=== PATIENT | male | born 1940 | race Caucasian/White ===

== ENCOUNTER 2017-10-22 17:47 | Inpatient (IN) | payer MEDICARE, BC, OTHER ==
[~2017-10-22] VITALS: Ht 185.4 cm; Wt 81.8 kg
[~2017-10-22 17:47] MED LIST: HALOBETASOL PO; LAVITRA; LAVITRA PO; LINZESS PO; LISINOPRIL20 MG PO; LORTAB 10-5001 EACH PO; LYRICA PO; LYRICA25 MG PO; PAIN PUMP; TRAMADOL PO; Z NIFEDIPINE PO; Z.0.ATENOLOL100 MG PO; Z.0.CARDURA8 MG PO; Z.0.CELEBREX200 MG PO; Z.0.CLONIDINE HCL0.2 PO; Z.0.FUROSEMIDE40 MG PO; Z.0.LORAZEPAM0.5 MG PO; Z.0.LYRICA150 MG PO; Z.0.PRAVASTATIN SOD2 PO; Z.0.ZOLPIDEM TART12. PO; Z.1.DOXAZOSIN MESYLA PO; ZOLPIDEM TART12.5 MG PO; [UNRECOGNIZED DRUG - OTHER] PO; embril IM
[2017-10-22 19:15] LABS: BASOPHILS # (AUTO) 0.1 (0.0-0.1); BASOPHILS % 0.7 % (0.0-1.0); EOSINOPHILS # (AUTO) 0.1 (0.0-0.4); LYMPHOCYTES # (AUTO) 0.8 (1.0-3.2); LYMPHOCYTES % 9.8 % (18.0-39.1); MEAN CORPUSCULAR HEMOGLOBIN 29.5 pg (28-32); MEAN CORPUSCULAR HGB CONC 32.3 g/dL (31-35); MEAN CORPUSCULAR VOLUME 91.4 fL (81-99); MONOCYTES # (AUTO) 0.7 (0.2-0.8); MONOCYTES % 8.7 % (4.4-11.3); NEUTROPHILS # (AUTO) 6.4 (2.1-6.9); NEUTROPHILS % 79.2 % (38.7-80.0); PLATELET COUNT 244 x10e3/uL (140-360); RED BLOOD COUNT 3.39 x10e6/uL (4.3-5.7); RED CELL DISTRIBUTION WIDTH 14.7 % (11.7-14.4)
[2017-10-22 19:34] LABS: ALANINE AMINOTRANSFERASE 17 IU/L (0-55); ALBUMIN 2.5 g/dL (3.5-5.0); ALBUMIN/GLOBULIN RATIO 0.8 (0.8-2.0); ALKALINE PHOSPHATASE 61 IU/L (40-150); ANION GAP 15.8 mmol/L (8-16); BLOOD UREA NITROGEN 25 mg/dL (7-26); BUN/CREATININE RATIO 22 (6-25); CALCIUM 8.6 mg/dL (8.4-10.2); CARBON DIOXIDE 22 mmol/L (22-29); CHLORIDE 111 mmol/L (98-107); CREATINE KINASE 115 IU/L (30-200); CREATININE, SERUM 1.12 mg/dL (0.72-1.25); EST GLOMERULAR FILTRATION RATE > 60 ML/MIN (60-); GLUCOSE 144 mg/dL (74-118); POTASSIUM 3.8 mmol/L (3.5-5.1); SODIUM 145 mmol/L (136-145)
--- NOTE | 2017-10-22 20:00 | Diagnostic Imaging Report ---
EXAMINATION: Head CT HISTORY: Increased weakness, difficulty walking COMPARISON: Brain MRI 02/16/2016 TECHNIQUE: Multidetector axial images were obtained without contrast from the foramen magnum to the vertex . The images were reconstructed using brain and bone algorithms. Thin section brain images were reformatted into coronal and sagittal planes. Motion/streaking artifact limits the evaluation of the skull base and posterior cranial fossa. FINDINGS: Parenchyma: 1. Mildly confluent periventricular white matter hypodensities, most likely nonspecific chronic microvascular ischemic changes. 2. Questionable hypodensity in the central medulla may represent artifact versus age indeterminate ischemic insult. This was not seen on prior MRI dated 02/16/2016. 3. No mass or hemorrhage. No CT evidence of acute territorial vascular insult. Extra-axial spaces:No abnormal density. No extra-axial fluid collections Brain volume: Mild generalized supra and infratentorial volume loss. Ventricles: No hydrocephalus or displacement. Arteries: Prominent calcified atherosclerotic changes of the carotid and vertebral arteries. Dural sinuses: No abnormal density. Extra-axial spaces: No abnormal density. Foramen magnum: No mass, Chiari malformation, or basilar invagination. Sella: No obvious mass. Paranasal/mastoid sinuses: Imaged portions unremarkable. Skull/Scalp: No lytic or blastic lesions. No fractures. IMPRESSION: 1. No acute intracranial hemorrhage or cortical infarcts. 2. Mild chronic microvascular ischemic changes as detailed above. Signed by: Dr. Bety Burns M.D. on 10/22/2017 7:56 PM
--- NOTE | 2017-10-22 20:01 | Diagnostic Imaging Report ---
Portable chest x-ray INDICATION: Weakness, difficulty walking COMPARISON: Chest x-ray 03/17/2013 FINDINGS: Frontal view of the chest obtained at 1936 hours. The cardiac silhouette is mildly enlarged. There is mild aortic ectasia. Spinal stimulator has been removed. The pulmonary vascular markings are normal. The lungs demonstrate no mass or infiltrate. Central lucency of the lungs suggestive of COPD. The costophrenic angles are sharp. There is no pneumothorax. The osseous structures are intact and normal in morphology. IMPRESSION: 1. Mild cardiomegaly without vascular congestion. 2. Pulmonary hyperinflation suggestive of COPD. No acute pulmonary process. Signed by: Dr. Nalini Thompson MD on 10/22/2017 7:58 PM
[2017-10-22 20:49] LABS: BILIRUBIN,URINE NEGATIVE (NEGATIVE); CLARITY,URINE CLEAR (CLEAR); COLOR,URINE YELLOW (YELLOW); KETONES,URINE TRACE (NEGATIVE); LEUKOCYTE ESTERASE ,URINE NEGATIVE (NEGATIVE); NITRITE,URINE NEGATIVE (NEGATIVE); PROTEIN,URINE DIPSTICK 1+ (NEGATIVE); URINE UROBILINOGEN 1 mg/dL (0.2 - 1)
[2017-10-22 20:59] LABS: BACTERIA,URINE RARE /HPF; EPITHELIAL CELLS,URINE FEW /LPF; RBC,URINE 0-5 /HPF (0-5)
[2017-10-22 21:00] LABS: MUCUS,URINE MANY (RARE)
[2017-10-22] MEDS ORDERED: ONDANSETRON HCL 4 MG ORAL DISINTEGRATING TAB PO PRN (21:45)
[2017-10-22] MEDS ORDERED: SODIUM CHLORIDE 0.9% 1000ML 1,000 ML IV ONE (21:45)
[2017-10-22] MEDS: CEFTRIAXONE SOD 1 GM VIAL IV SCH (21:46)
[2017-10-22] MEDS ORDERED: CEFTRIAXONE SOD 1 GM VIAL ONE (21:50)
--- OUTSIDE RECORDS SUMMARY | 2017-10-22 21:54 | XMS REPORT ---
Author Author [facility] Address Unknown Phone Unavailable Care Team Providers Care Router Operator Radial Name Role Phone EMILY RAMIREZ Unavailable Unavailable Problems This patient has no known problems. Allergies, Adverse Reactions, Alerts This patient has no known allergies or adverse reactions. Medications This patient has no known medications. Results Test Description Test Time Test Comments Text Results Atomic Results Result Comments CT BRAIN WO [place] [address] Patient Name: ABDIAZIZ MORIN MR #: [id number] : 1940 Age/Sex: 76/M Req #: [id number] Adm Physician: Ordered by: MANUEL ALONZO ANIMAL PHYSIOLOGIST Report #: [id number] Location: ER Room/Bed: Procedure: [id number] CT/CT BRAIN WO Exam Date: 10/22/17 Exam Time: 1940 REPORT STATUS: Signed EXAMINATION: Head CT HISTORY: Increased weakness, difficulty walking COMPARISON: Brain MRI 2015 TECHNIQUE: Multidetector axial images were obtained without contrast from the foramen magnum to the vertex . The images were reconstructed using brain and bone algorithms. Thin section brain images were reformatted into coronal and sagittal planes. Motion/streaking artifact limits the evaluation of the skull base and posterior cranial fossa. FINDINGS: Parenchyma: 1. Mildly confluent periventricular white matter hypodensities, most likely nonspecific chronic microvascular ischemic changes. 2. Questionable hypodensity in the central medulla may represent artifact versus age indeterminate ischemic insult. This was not seen on prior MRI dated 02/16/2016. 3. No mass or hemorrhage. No CT evidence of acute territorial vascular insult. Extra-axial spaces:No abnormal density. No extra-axial fluid collections Brain volume: Mild generalized supra and infratentorial volume loss. Ventricles: No hydrocephalus or displacement. Arteries: Prominent calcified atherosclerotic changes of the carotid and vertebral arteries. Dural sinuses: No abnormal density. Extra-axial spaces: No abnormal density. Foramen magnum: No mass, Chiari malformation, or basilar invagination. Sella: No obvious mass. Paranasal/mastoid sinuses: Imaged portions unremarkable. Skull/Scalp: No lytic or blastic lesions. No fractures. IMPRESSION: 1. No acute intracranial hemorrhage or cortical infarcts. 2. Mild chronic microvascular ischemic changes as detailed above. Signed by: Dr. Mounika Burns M.D. on 10/22/2017 7:56 PM Dictated By: MOUNIKA BURNS MD 55 COPY TO: MANUEL ALONZO NP CHEST SINGLE (PORTABLE) [place] [address] Patient Name: ABDIAZIZ MORIN MR #: [id number] : 1940 Age/Sex: 76/M Req #: [id number] Adm Physician: Ordered by: MANUEL ALONZO NP Report #: [id number] Location: ER Room/Bed: ___ Procedure: [id number] DX/CHEST SINGLE (PORTABLE) Exam Date: 10/22/17 Exam Time: 1935 REPORT STATUS: Signed Portable chest x-ray INDICATION: Weakness, difficulty walking COMPARISON: Chest x-ray 03/17/2013 FINDINGS: Frontal view of the chest obtained at 1936 hours. The cardiac silhouette is mildly enlarged. There is mild aortic ectasia. Spinal stimulator has been removed. The pulmonary vascular markings are normal. The lungs demonstrate no mass or infiltrate. Central lucency of the lungs suggestive of COPD. The costophrenic angles are sharp. There is no pneumothorax. The osseous structures are intact and normal in morphology. IMPRESSION: 1. Mild cardiomegaly without vascular congestion. 2. Pulmonary hyperinflation suggestive of COPD. No acute pulmonary process. Signed by: Dr. Nalini Thompson MD on 10/22/2017 7:58 PM Dictated By: NALINI THOMPSON MD 57 Transcribed By: DAVID on 10/22/171957 COPY TO: MANUEL ALONZO NP
[2017-10-22] MEDS ORDERED: REMERON15 MG (23:07)
[2017-10-22] MEDS ORDERED: ACETAMINOPHEN325 M1 PO (23:07)
[2017-10-22 23:09] VITALS: BP 173/86
[2017-10-22 23:33] VITALS: BP 173/86
[2017-10-23 06:22] LABS: BASOPHILS # (AUTO) 0.1 (0.0-0.1); BASOPHILS % 0.8 % (0.0-1.0); EOSINOPHILS # (AUTO) 0.1 (0.0-0.4); EOSINOPHILS % 2.1 % (0.0-6.0); HEMATOCRIT 26.3 % (38.2-49.6); HEMOGLOBIN 8.6 g/dL (14.0-18.0); LYMPHOCYTES % 16.5 % (18.0-39.1); MEAN CORPUSCULAR HEMOGLOBIN 30.2 pg (28-32); MEAN CORPUSCULAR HGB CONC 32.7 g/dL (31-35); MEAN CORPUSCULAR VOLUME 92.3 fL (81-99); MONOCYTES # (AUTO) 0.6 (0.2-0.8); MONOCYTES % 9.5 % (4.4-11.3); NEUTROPHILS # (AUTO) 4.4 (2.1-6.9); NEUTROPHILS % 70.6 % (38.7-80.0); PLATELET COUNT 203 x10e3/uL (140-360); RED BLOOD COUNT 2.85 x10e6/uL (4.3-5.7); RED CELL DISTRIBUTION WIDTH 14.6 % (11.7-14.4)
[2017-10-23 06:45] LABS: ALANINE AMINOTRANSFERASE 12 IU/L (0-55); ALBUMIN 2.1 g/dL (3.5-5.0); ALBUMIN/GLOBULIN RATIO 0.8 (0.8-2.0); ALKALINE PHOSPHATASE 45 IU/L (40-150); ANION GAP 11.3 mmol/L (8-16); BLOOD UREA NITROGEN 22 mg/dL (7-26); BUN/CREATININE RATIO 23 (6-25); CALCIUM 8.2 mg/dL (8.4-10.2); CARBON DIOXIDE 23 mmol/L (22-29); CHLORIDE 111 mmol/L (98-107); CREATININE, SERUM 0.95 mg/dL (0.72-1.25); EST GLOMERULAR FILTRATION RATE > 60 ML/MIN (60-); GLUCOSE 91 mg/dL (74-118); POTASSIUM 3.3 mmol/L (3.5-5.1); SODIUM 142 mmol/L (136-145)
[2017-10-23 08:00] VITALS: BP 144/70
[2017-10-23] MEDS ORDERED: DEPAKOTE250 MG PO (11:52)
[2017-10-23 12:00] VITALS: BP 138/75
[2017-10-23 15:06] LABS: CREATINE KINASE MB 0.8 ng/mL (0-5.0)
[2017-10-23 16:00] VITALS: BP 159/73
[2017-10-23] MEDS ORDERED: PREGABALIN 225 MG PO SCH (17:00)
[2017-10-23] MEDS: DRONABINOL 2.5MG PO SCH (17:19)
[2017-10-23] MEDS: PREGABALIN 75 MG CAP PO SCH (17:19)
[2017-10-23] MEDS: ACETAMINOPHEN 325 MG TAB PO SCH (17:19)
[2017-10-23 20:00] VITALS: BP 188/79
[2017-10-23] MEDS ORDERED: CLONIDINE HCL 0.1 MG TAB PO SCH (21:00)
[2017-10-23] MEDS ORDERED: CLONIDINE HCL 0.2 MG TAB PO SCH (21:00)
[2017-10-23] MEDS ORDERED: LORAZEPAM 0.5 MG TAB PO PRN (21:00)
[2017-10-23] MEDS ORDERED: LORAZEPAM 0.5 MG TAB PO SCH (21:00)
[2017-10-23] MEDS: DIVALPROEX SODIUM 250 MG TAB...DR PO SCH (22:26)
[2017-10-23] MEDS: CEFTRIAXONE SOD 1 GM VIAL IV SCH (22:26)
[2017-10-24] VITALS (7 sets, daily range): BP systolic 123–187; BP diastolic 65–98
[2017-10-24] MEDS: ACETAMINOPHEN 325 MG TAB PO SCH ×4 (00:22→16:21)
[2017-10-24] MEDS ORDERED: CLONIDINE HCL 0.1 MG TAB PO ONE (05:45)
[2017-10-24 06:38] LABS: BASOPHILS % 0.6 % (0.0-1.0); EOSINOPHILS # (AUTO) 0.1 (0.0-0.4); EOSINOPHILS % 2.3 % (0.0-6.0); HEMATOCRIT 28.6 % (38.2-49.6); HEMOGLOBIN 9.3 g/dL (14.0-18.0); LYMPHOCYTES # (AUTO) 1.1 (1.0-3.2); LYMPHOCYTES % 17.4 % (18.0-39.1); MEAN CORPUSCULAR HEMOGLOBIN 29.9 pg (28-32); MEAN CORPUSCULAR HGB CONC 32.5 g/dL (31-35); MONOCYTES # (AUTO) 0.7 (0.2-0.8); MONOCYTES % 11.6 % (4.4-11.3); NEUTROPHILS # (AUTO) 4.2 (2.1-6.9); NEUTROPHILS % 67.6 % (38.7-80.0); PLATELET COUNT 210 x10e3/uL (140-360); RED BLOOD COUNT 3.11 x10e6/uL (4.3-5.7); RED CELL DISTRIBUTION WIDTH 14.6 % (11.7-14.4)
[2017-10-24 07:05] LABS: ANION GAP 11.7 mmol/L (8-16); BLOOD UREA NITROGEN 22 mg/dL (7-26); BUN/CREATININE RATIO 23 (6-25); CALCIUM 8.4 mg/dL (8.4-10.2); CARBON DIOXIDE 25 mmol/L (22-29); CHLORIDE 113 mmol/L (98-107); CREATININE, SERUM 0.97 mg/dL (0.72-1.25); EST GLOMERULAR FILTRATION RATE > 60 ML/MIN (60-); GLUCOSE 92 mg/dL (74-118); POTASSIUM 3.7 mmol/L (3.5-5.1); SODIUM 146 mmol/L (136-145)
[2017-10-24] MEDS: DRONABINOL 2.5MG PO SCH ×2 (08:42→17:12)
[2017-10-24] MEDS: CLONIDINE HCL 0.2 MG TAB PO SCH ×3 (08:42→20:49)
[2017-10-24] MEDS: LISINOPRIL 20 MG TAB PO SCH (08:43)
[2017-10-24] MEDS: DIVALPROEX SODIUM 250 MG TAB...DR PO SCH (08:43)
[2017-10-24] MEDS: PREGABALIN 75 MG CAP PO SCH ×2 (08:43→16:21)
[2017-10-24] MEDS: NIFEDIPINE CR 30 MG TAB PO SCH (08:44)
[2017-10-24] MEDS: COLLAGENASE 5 GM TUBE TP SCH (08:45)
[2017-10-24] MEDS: BALSAM PERU/CASTOR OIL 60 GM OINT...G. TP SCH ×2 (08:45→15:58)
[2017-10-24] MEDS ORDERED: COLLAGENASE OINTMENT 30 GM TUBE TP SCH (09:00)
--- NOTE | 2017-10-24 14:15 | Consultation ---
DATE OF CONSULTATION: October 23, 2017 NEUROLOGY CONSULT NOTE HISTORY OF PRESENT ILLNESS: Mr. Ayala is a 76-year-old right-hand dominant man with past medical history significant for hypertension, aortic stenosis, atrial fibrillation, prostate cancer, and dementia, probably of the Alzheimer's type admitted to [facility] on October 22, 2017 with a 2-week history of progressively worsening confusion. Unfortunately, the patient is unable to provide any history. The history is obtained from his , Nadiya Ayala, over the telephone. Approximately, 2 weeks ago, the patient had a "bout of diarrhea", which lasted for approximately 4 to 5 days. For the past 2 weeks, Mr. Ayala has not tolerated food or beverages by mouth. Over the past 2 weeks, his has noted worsening confusion and generalized weakness. Mr. Ayala resides in a memory care facility. When his came to visit him on October 22, 2017, she found the patient lying in bed, unresponsive with his arms bent and locked over his chest. The patient's legs were extended. There was no gaze or head version. However, Mrs. Ayala reports the patient's eyes had a glazed appearance. There was no tongue biting or foaming saliva. There was possible bladder or bowel incontinence. After finding her in the above-described state, the patient's went to speak with his nurse. The nurse immediately called 911 and then, proceeded to the patient's room to evaluate him. By the time Mrs. Ayala and the patient's nurse returned to the room, the patient's eyes were open and he was moving his arms and legs. However, the patient was very confused. The paramedics arrived on the scene shortly after being called, and transported the patient to [facility] for further evaluation and treatment of his symptoms. Mrs. Ayala does not report a prior history of seizures. She reports the patient is taking valproic acid 250 mg by mouth 3 times daily for mood stabilization as prescribed by his psychiatrist. Upon admission to the hospital, Mr. Ayala was found to be dehydrated and to have urinary tract infection. Other significant findings on his diagnostic studies include a subtherapeutic valproic acid level of 36. Mr. Ayala was diagnosed with dementia, probably of the Alzheimer's type, approximately 1-1/2 to 2 years ago. He was seeing Dr. Chaidez for treatment. Initially, he was treated with Aricept and Namenda. This was, subsequently, exchanged for Namzaric. The patient's reports the patient had a better response to Aricept and Namenda separately rather than a combination of the medications in Namzaric. Mrs. Ayala does report verbal and physical aggression from her . She endorses visual hallucinations as well. REVIEW OF SYSTEMS: Unable to obtain secondary to the patient being encephalopathic. PAST MEDICAL HISTORY: Hypertension, aortic stenosis, atrial fibrillation, chronic low back pain, prostate cancer (in remission), dementia, probably of the Alzheimer's tight, and possible peripheral neuropathy. PAST SURGICAL HISTORY: Multiple lumbar spine surgeries. PAST HOSPITALIZATIONS: Surgeries/procedures listed. Multiple hospitalizations for encephalopathy. FAMILY HISTORY: The only significant family history endorsed by the patient's is diabetes mellitus in the patient's mother. SOCIAL HISTORY: Mr. Ayala is . He is a college graduate. 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 There is no reported current use of tobacco, alcohol or recreational drugs. HOME MEDICATIONS 1. Acetaminophen 650 mg by mouth every 6 hours as needed for pain. 2. Clonidine 0.1 mg by mouth 3 times daily. 3. Depakote 250 mg by mouth 3 times daily. 4. Lisinopril 20 mg by mouth daily. 5. Lorazepam 0.5 mg by mouth 3 times daily. 6. Mirtazapine 15 mg by mouth daily. 7. Nifedipine 90 mg by mouth daily. 8. Lyrica 225 mg by mouth twice daily. ALLERGIES: NO KNOWN DRUG ALLERGIES. NO KNOWN FOOD ALLERGIES. NO KNOWN ALLERGY TO LATEX. NO KNOWN ALLERGIES TO IODINE OR OTHER CONTRAST MATERIAL. PHYSICAL EXAMINATION VITAL SIGNS: Height 73 inches. Weight 184 lbs. BMI 24.3 kg per meter squared. Blood pressure 159/73 mmHg. Pulse 63 beats per minute. Respiratory rate 18 breaths per minute. Oxygen saturation 97% on room air. GENERAL: Patient is awake and alert, in no acute distress. HEENT: Normocephalic, atraumatic. Pupils are equal, round and reactive to light. Moist mucous membranes. NECK: Supple. No appreciable thyromegaly. No appreciable carotid bruits. CARDIOVASCULAR: S1, S2. Regular rate and rhythm. Positive systolic ejection murmur. RESPIRATORY: Clear to auscultation bilaterally. No wheezes, rhonchi or rales. EXTREMITIES: The skin is warm and dry. No clubbing or cyanosis. There is trace pretibial pitting edema. The posterior tibial and dorsalis pedis pulses are 1+ and symmetric. NEUROLOGIC MEMORY/ATTENTION: The patient is awake and alert. Oriented to person and place (hospital, State). Not oriented to time or situation. CRANIAL NERVES: Cranial nerve I--not tested. Cranial nerves II-III IV, --pupils are equal and round, react briskly to light (from 4 mm to 2 mm), extraocular movements intact. No nystagmus. Cranial nerve V--sensation to light touch is grossly intact in the bilateral V1 through V3 distributions. Strength of the temporalis and masseter muscles is within normal limits. Cranial nerve VII--the face is symmetric as are all facial movements. Strength is within normal limits. Cranial nerve VII--hearing is diminished to finger rub bilaterally. Cranial nerves IX, X--the soft palate elevates equally and symmetrically. Cranial nerve XI--normal strength of the bilateral sternocleidomastoid and trapezius muscles. Cranial nerve XII--the tongue protrudes midline and moves symmetrically from side to side. STRENGTH: Bulk is normal. The patient maintains both arms against gravity for more than 10 seconds each without drift. The patient maintains both legs against gravity for more than 5 seconds each without drift. Strength is 5/5 in all muscles examined in both arms and both legs. Tone is normal. DTRs: Deep tendon reflexes are 1+ and symmetric at the triceps, biceps, brachioradialis, and patellas. Deep tendon reflexes are absent and symmetric at the Achilles. Plantar responses are flexor bilaterally. SENSATION: Sensation to light touch is grossly intact over both arms and both legs. CEREBELLAR: Unable to assess as the patient is encephalopathic and unable to follow instructions. GAIT: Gait deferred. SPEECH: Spontaneous speech is hypophonic. There is no appreciable dysarthria or aphasia. Appreciated repetition is intact. INVOLUNTARY MOVEMENTS: None. PRONATOR DRIFT: As per motor exam. LABORATORY DATA: Sodium 142, potassium 3.3, chloride 111, carbon dioxide 23, anion gap 11.3, BUN 22, creatinine 0.95, estimated GFR greater than 60. BUN to creatinine ratio 23, glucose 91, calcium 8.2, total bilirubin 0.5, AST 14, ALT 12, alkaline phosphatase 45, total protein 4.7, albumin 2.1, globulin 2.6, albumin to globulin ratio 0.82. CK 115, 60, 54. CK-MB 1.601, 1.00, 0.80. Troponin-I 0.004, 0.011, 0.001. The CBC with differential and platelets reveals a white blood cell count of 6.20 with 70.6% neutrophils, 16.5% lymphocytes, 9.5% monocytes, 2.1% eosinophils, and 0.8% basophils. The hemoglobin/hematocrit are 8.6 and 26.3, respectively. The platelet count is 203,000. Urinalysis reveals 1+ protein, trace ketones, 6 to 10 white blood cells, 2 to 5 hyaline casts, and many urine mucus. Valproic acid level 36. DIAGNOSTIC STUDIES 1. Chest x-ray on October 22, 2017: Mild cardiomegaly without vascular congestion. Pulmonary hyperinflation suggestive of COPD. No acute pulmonary process. 2. CT of the brain without contrast on October 22, 2017: On my review, there is no evidence of recent large territorial ischemia hemorrhage, mass or mass effect. There is diffuse cerebral atrophy, more than is expected to the patient's age. There are findings compatible with mild chronic small vessel ischemic disease. ASSESSMENT AND PLAN: Mr. Ayala is a 76-year-old right-hand dominant man with past medical history significant for dementia, probably of the Alzheimer's type, hypertension, aortic stenosis, atrial fibrillation, and prostate cancer, currently in remission, admitted to [facility] on October 22, 2017 with a 2-week history of worsening confusion. Upon admission, the patient was found to be dehydrated and to have a urinary tract infection. The findings on Mr. Ayala's neurological examination are detailed above. His laboratory data and other diagnostic studies have been reviewed and are detailed above. Mr. Ayala has a metabolic encephalopathy, which is multifactorial in origin. Contributing factors include underlying dementia, dehydration, and urinary tract infection. As the patient is outside of his normal environment and not participating in his normal routine, there is probably a component of delirium contributing to his encephalopathy as well. The patient's reports no known history of seizure disorder. However, the event she witnessed yesterday prior to the patient's transfer to [facility] is suspicious for a seizure. Mr. Ayala was found to have a subtherapeutic valproic acid level upon admission. Medications nonadherence is a known trigger for seizures. In addition, the patient has a urinary tract infection. Infection is a known trigger for seizures as well. RECOMMENDATIONS 1. Routine electroencephalogram. 2. Continue treatment with Depakote 250 mg by mouth 3 times daily. 3. A repeat valproic acid level will be drawn on October 24, 2017. 4. As part of a dementia evaluation, blood work will be ordered. Those tests include: A thyroid function panel, vitamin B12 level, and RPR. 5. Continue with intravenous fluids for treatment of dehydration. 6. Continue with antibiotics for treatment of urinary tract infection. 7. Limit the use of sedative/hypnotic and pain medications as these medicines will alter the patient's sensorium. To this end, Ativan will be changed from scheduled to as needed. 8. To combat delirium, utilize environmental cues. Have light and television turned on during the day. The lights and television should be turned off when the patient should be sleeping. The date, day of the week, month, and year should be written on the dry erase board in the patient's room daily. Any expected consultations or procedures should be written on the dry erase board as well. 9. Consider resuming treatment with Aricept and Namenda prior to discharge. 10. Defer treatment of the remaining medical comorbidities to the primary and other services. Thank you for this consultation. I will continue to follow this patient while he remains in hospital. Time spent 70 minutes. Job#: [id number] EMMANUEL
[2017-10-24] MEDS ORDERED: RISPERIDONE 0.5 MG TAB PO PRN (16:00)
[2017-10-24] MEDS ORDERED: HALOPERIDOL LACTATE 5 MG/ML VIAL IM PRN (16:00)
[2017-10-24] MEDS ORDERED: VALPROATE SOD INJ 1,000 MG in SODIUM CHLORIDE 0.9% 100 ML 100 ML IV SCH ×2 (16:15→16:30)
[2017-10-24] MEDS ORDERED: SODIUM CHLORIDE 0.9% 250ML 250 ML ONE (17:16)
[2017-10-24] MEDS: VALPROATE 250MG/5ML ORAL LIQ 5ml PO SCH (20:50)
[2017-10-24] MEDS: CEFTRIAXONE SOD 1 GM VIAL IV SCH (20:50)
[2017-10-25] VITALS (7 sets, daily range): BP systolic 95–189; BP diastolic 62–86
[2017-10-25] MEDS: ACETAMINOPHEN 325 MG TAB PO SCH ×4 (01:35→17:09)
[2017-10-25] MEDS: DRONABINOL 2.5MG PO SCH ×2 (07:30→17:09)
[2017-10-25] MEDS: CLONIDINE HCL 0.2 MG TAB PO SCH ×2 (08:32→15:00)
[2017-10-25] MEDS: VALPROATE 250MG/5ML ORAL LIQ 5ml PO SCH ×2 (08:33→15:52)
[2017-10-25] MEDS: PREGABALIN 75 MG CAP PO SCH ×2 (08:33→17:09)
[2017-10-25] MEDS: LISINOPRIL 20 MG TAB PO SCH (08:33)
[2017-10-25] MEDS: NIFEDIPINE CR 30 MG TAB PO SCH (08:34)
[2017-10-25] MEDS: BALSAM PERU/CASTOR OIL 60 GM OINT...G. TP SCH ×2 (09:00→17:09)
[2017-10-25] MEDS: COLLAGENASE 5 GM TUBE TP SCH (09:00)
--- NOTE | 2017-10-25 10:00 | Consultation ---
DATE OF CONSULTATION: October 24, 2017 The patient was evaluated and events noted. REASON FOR CONSULTATION: To evaluate the patient's dementia. HISTORY OF PRESENTING ILLNESS: The patient is a 76-year-old man admitted to the hospital for decreased ADLs and dehydration. Psychiatric consultation was requested to evaluate the patient for dementia and psychosis. As per medical records, the patient came from nursing facility. He has medical history of hypertension, aortic stenosis, atrial fibrillation, prostate cancer, dementia. He was found to have worsening confusion and altered mental status and was taken to the hospital for further evaluation. Upon evaluation today, the patient is found to be in the room. He was alert, awake. He is calm but confused. He is oriented to self only. He does not know where he is. He does not know the current year. He appears to be suspicious and paranoid, and believes that the police is out to lock him up. He states that this makes him anxious. He denies any depression. He denies any sleep issues. He denies any suicidal ideation. He is slow to answer questions. At times, appears to not understand the questions posed to him completely. The rest of the information is taken with the help of the patient's [id number] who was in the room at the time. I spoke to the patient's [id number]-cou who reports that the patient was staying at a intermediate facility. He has had history of dementia for about 2 years, which worsened for the last 6 months. She finds him to more confused, less active, unable to do his ADLs. 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 He is not aware of his surroundings. He believes he works at many places. During his stay at the intermediate facility, he was not eating there. He did not have any appetite issues. There is a report that the patient was having some hallucinations at the facility, and he received something which helped, but the [id number] does not know the name of this particular medication. As per the nursing staff, the patient has been agitated, has been fighting staff today. PAST PSYCHIATRIC HISTORY: The patient has history of dementia for the last 2 years. He has never attempted suicide in the past, as per family member. He did not drink or use any drugs. FAMILY HISTORY: Denied. SOCIAL HISTORY: The patient is living at [facility]. MENTAL STATUS EXAM: The patient is an elderly male. He is alert, awake and oriented to self only. He is very confused. Mood is anxious with flat affect. Thought process is loose. Thought content is paranoia elicited today. He denies any suicidal or homicidal ideation. He denies any hallucinations. Insight and judgment are impaired. Memory appears to be grossly impaired. CURRENT MEDICATIONS: 1. Collagenase. 2. Nifedipine. 3. Lisinopril. 4. Depakote 250 mg p.o. 3 times a day. 5. Clonidine. 6. Marinol. 7. Rocephin. 8. Lortab. 9. Tylenol. 10. Ativan 0.5 3 times a day p.r.n. 11. Ondansetron. CURRENT LABS: WBC 6.19, RBCs 3.11, hemoglobin 9.3, hematocrit 28.6, platelets 210,000, sodium 146, potassium 3.7, chloride 113, CO2 of 25, BUN 22, creatinine 0.97. ASSESSMENT: Unspecified psychosis; dementia with behavioral disturbances. PLAN: 1. Continue with Ativan 0.5 mg p.o. 3 times a day p.r.n. 2. Marinol ____ diet per medical. 3. Continue Depakote, adjust the Depakote sprinkles 250 mg p.o. 3 times a day. 4. Risperdal p.r.n. 5. Add Haldol prn IM. 6. Monitor for agitation. Thank you for this consultation. Will continue to follow up with the patient during his hospital stay. Dictated by: JAMAR Estevez Job#: [id number]
--- NOTE | 2017-10-25 16:58 | Progress Note ---
DATE: October 25, 2017 The patient was evaluated and events noted. Patient is lying on the bed. He is awake, alert and oriented to situation. He is calm at this time. Patient received a Haldol dose earlier this morning at 4 a.m. Nursing staff reported that he was restless. Patient is calm, although confused at times, answering questions inappropriately. He is not having any hallucinations. He denies any depression. He denies any suicidal ideation. He is receiving his medications, and no serious side effects are seen. As per nursing staff, the patient has been discharged to go to [facility]. ASSESSMENT: Unspecified psychosis/dementia. PLAN 1. Continue with Ativan p.r.n. p.o. 2. Depakote as per neurology. 3. Continue Risperdal p.r.n. 4. Continue Haldol p.r.n. IM. 5. Monitor for agitation. Dictated by: JAMAR Estevez Job#: [id number]
== END 2017-10-25 19:11 | DRG 689 ==
LOC: ER 17:47 → ERHOLD 21:34 → EDBEDREQ 21:56 → MED/SURG2 22:29
DX: N30.00 Acute cystitis without hematuria (principal); G93.41 Metabolic encephalopathy; F05 Delirium due to known physiological condition; F02.81 Dementia in other diseases classified elsewhere, unspecified severity, with behavioral disturbance; E86.0 Dehydration; G30.0 Alzheimer's disease with early onset; I10 Essential (primary) hypertension; I25.10 Atherosclerotic heart disease of native coronary artery without angina pectoris; I35.0 Nonrheumatic aortic (valve) stenosis; I48.91 Unspecified atrial fibrillation; Z85.46 Personal history of malignant neoplasm of prostate; G89.29 Other chronic pain; R56.9 Unspecified convulsions
CPT/HCPCS: 36415; 70450; 71045; 80048; 80053; 80164; 81001; 82550; 82553; 82607; 82948; 84443; 84484; 85025; 86592; 87040; 87086; 93005; 95812; 97139; 99284; J0696; J1630; J7030; J7050

== ENCOUNTER 2019-06-25 14:14 | Emergency (ER) | payer MEDICARE, BC ==
[~2019-06-25] VITALS: Ht 185.4 cm; Wt 81.6 kg
[~2019-06-25 14:14] MED LIST changes: +ACETAMINOPHEN325 M1 PO; +CLINDAMYCIN HC300 MG PO; +DEPAKOTE250 MG PO; +REMERON15 MG
[2019-06-25] MEDS ORDERED: TRAMADOL HCL 50 MG TAB PO ONE (14:30)
--- NOTE | 2019-06-25 16:08 | Diagnostic Imaging Report ---
EXAMINATION: KNEE THREE VIEWS BILATERAL, LOWER LEG RIGHT INDICATION: Trauma COMPARISON: None FINDINGS: Right lower leg: There is a nondisplaced oblique fracture of the proximal tibial diaphysis. No definite evidence of intra-articular extension to the knee joint. Right knee: No acute fracture or dislocation. Alignment is anatomic. No substantial joint effusion. Soft tissues appear unremarkable. Atherosclerotic arterial calcifications. Left knee: No acute fracture or dislocation. Alignment is anatomic. No substantial joint effusion. Atherosclerotic arterial calcifications. IMPRESSION: Nondisplaced oblique fracture of proximal right tibia without definite intra-articular extension. No acute osseous injury of the knees. Signed by: Jacklyn Dang MD on 06/25/2019 4:05 PM
== END 2019-06-25 16:51 | disposition home or self-care (01) ==
LOC: ER 14:14
DX: S82.234A Nondisplaced oblique fracture of shaft of right tibia, initial encounter for closed fracture (principal); S80.212D Abrasion, left knee, subsequent encounter; S80.211D Abrasion, right knee, subsequent encounter; W01.0XXA Fall on same level from slipping, tripping and stumbling without subsequent striking against object, initial encounter; Y92.008 Other place in unspecified non-institutional (private) residence as the place of occurrence of the external cause; I25.10 Atherosclerotic heart disease of native coronary artery without angina pectoris; I48.91 Unspecified atrial fibrillation; Z86.73 Personal history of transient ischemic attack (TIA), and cerebral infarction without residual deficits; Z85.46 Personal history of malignant neoplasm of prostate
CPT/HCPCS: 99284

== ENCOUNTER 2019-06-29 09:51 | Inpatient (IN) | payer MEDICARE, BC ==
[~2019-06-29] VITALS: Ht 185.4 cm; Wt 80.8 kg
[2019-06-29] MEDS ORDERED: SODIUM CHLORIDE 0.9% 500ML 500 ML IV ONE ×2 (10:15→11:30)
[2019-06-29] MEDS ORDERED: PIPER-TAZ 3.375 GM 50 ML IV ONE (10:30)
[2019-06-29 10:38] LABS: BASOPHILS # (AUTO) 0.1 (0.0-0.1); BASOPHILS % 0.7 % (0.0-1.0); EOSINOPHILS # (AUTO) 0.2 (0.0-0.4); EOSINOPHILS % 1.9 % (0.0-6.0); HEMATOCRIT 32.2 % (38.2-49.6); HEMOGLOBIN 10.8 g/dL (14.0-18.0); LYMPHOCYTES # (AUTO) 1.2 (1.0-3.2); LYMPHOCYTES % 12.7 % (18.0-39.1); MEAN CORPUSCULAR HEMOGLOBIN 30.8 pg (28-32); MEAN CORPUSCULAR HGB CONC 33.5 g/dL (31-35); MEAN CORPUSCULAR VOLUME 91.7 fL (81-99); MONOCYTES # (AUTO) 0.9 (0.2-0.8); MONOCYTES % 9.8 % (4.4-11.3); NEUTROPHILS # (AUTO) 7.2 (2.1-6.9); NEUTROPHILS % 74.5 % (38.7-80.0); PLATELET COUNT 276 x10e3/uL (140-360); RED BLOOD COUNT 3.51 x10e6/uL (4.3-5.7); RED CELL DISTRIBUTION WIDTH 12.6 % (11.7-14.4)
[2019-06-29 10:51] LABS: INR 0.96
[2019-06-29 10:52] LABS: PARTIAL THROMBOPLASTIN TIME 32.4 seconds (23.8-35.5)
[2019-06-29 10:55] LABS: CLARITY,URINE CLEAR (CLEAR); COLOR,URINE YELLOW (YELLOW)
[2019-06-29 10:56] LABS: BACTERIA,URINE RARE /HPF; BILIRUBIN,URINE NEGATIVE (NEGATIVE); EPITHELIAL CELLS,URINE FEW /LPF; KETONES,URINE NEGATIVE (NEGATIVE); LEUKOCYTE ESTERASE ,URINE NEGATIVE (NEGATIVE); NITRITE,URINE NEGATIVE (NEGATIVE); PROTEIN,URINE DIPSTICK NEGATIVE (NEGATIVE); RBC,URINE 0-5 /HPF (0-5); URINE UROBILINOGEN 0.2 mg/dL (0.2 - 1); WBC,URINE (MAN) 0-5 /HPF (0-5)
[2019-06-29] MEDS ORDERED: VANCOMYCIN 1GM/NS 250 ML 250 ML IV ONE (11:00)
--- NOTE | 2019-06-29 11:00 | Diagnostic Imaging Report ---
CT BRAIN WO HISTORY: Fall COMPARISON: Head CT 10/22/2017 Technique: Noncontrast axial scans were obtained from skull base to the vertex. Coronal and sagittal reconstructions obtained from the axial data. One or more of the following dose reduction techniques were used: Automated exposure control, adjustment of the mA and/or kV according to patient size, and/or utilization of iterative reconstruction technique. DISCUSSION: Scalp/Skull: Unremarkable. Brain sulci: Mildly prominent. Ventricles: Compensatory dilatation. Extra-axial spaces: No masses or fluid collections. Carotid and vertebral artery calcifications are present. Parenchyma: Mild bilateral deep white matter hypodensity is likely chronic microvascular ischemic change. Otherwise, no masses, hemorrhage, or large vascular territory acute infarct. Dural sinuses: No abnormal densities. Sellar/Suprasellar region: Intact. Skull base: Intact. Incidental findings: Bilateral ocular lens replacement. IMPRESSION: 1. No acute intracranial abnormalities. 2. Mild supratentorial chronic microvascular ischemic change. Generalized cerebral volume loss. Signed by: Dr. Isauro Olvera M.D. on 06/29/2019 10:58 AM
[2019-06-29 11:01] LABS: ALBUMIN 3.6 g/dL (3.5-5.0); ALBUMIN/GLOBULIN RATIO 0.9 (0.8-2.0); ANION GAP 21.6 mmol/L (8-16); CREATININE, SERUM 2.62 mg/dL (0.72-1.25); MAGNESIUM 2.3 MG/DL (1.3-2.1); POTASSIUM 4.6 mmol/L (3.5-5.1)
[2019-06-29 11:05] LABS: B-TYPE NATRIURETIC PEPTIDE2 90.6 pg/mL (0-100)
--- NOTE | 2019-06-29 11:05 | Diagnostic Imaging Report ---
CT CERVICAL SPINE WO HISTORY: Fall COMPARISON: Concurrent head CT TECHNIQUE: CT of the cervical spine without contrast. Sagittal and coronal reformations were created. One or more of the following dose reduction techniques were used: Automated exposure control, adjustment of the mA and/or kV according to patient size, and/or utilization of iterative reconstruction technique. FINDINGS: Bone demineralization limits evaluation. Cervical lordosis is slightly straightened. There is no scoliosis or subluxation. No definite acute fracture or compression deformity is seen. The craniocervical junction is intact. No gross spinal canal masses are seen. The paravertebral and paraspinal soft tissues are unremarkable. Multilevel advanced spondylotic changes, facet arthrosis, and uncovertebral arthrosis are present. There is at least mild to moderate canal stenosis from C3-C4 to C6-C7 due to posterior disc osteophyte complexes and ligamentum flavum thickening. Mild to moderate bilateral carotid bulb calcified plaque is present. IMPRESSION: 1. No acute osseous abnormalities. 2. Multilevel advanced degenerative changes as described above. Signed by: Dr. Isauro Olvera M.D. on 06/29/2019 11:03 AM
[2019-06-29 11:07] LABS: CREATINE KINASE MB 1.1 ng/mL (0-5.0)
[2019-06-29] MEDS ORDERED: BUMETANIDE2 MG (11:47)
[2019-06-29] MEDS ORDERED: MUPIROCIN22 GM (11:47)
[2019-06-29] MEDS ORDERED: POTASSIUM CHLO20 ME1 (11:47)
[2019-06-29] MEDS ORDERED: ATORVASTATIN CA10 MG (11:47)
[2019-06-29] MEDS ORDERED: ESIDRIX25 MG (11:47)
[2019-06-29] MEDS ORDERED: MEMANTINE HCL10 MG (11:47)
[2019-06-29] MEDS ORDERED: POTASSIUM (11:47)
[2019-06-29] MEDS ORDERED: NIFEDIPINE ER60 M1 (11:47)
[2019-06-29] MEDS ORDERED: SPIRONOLACTONE25 MG (11:47)
[2019-06-29] MEDS ORDERED: ULTRAM 50MG50 MG (11:47)
[2019-06-29] MEDS ORDERED: QUETIAPINE FUMA25 MG (11:47)
[2019-06-29] MEDS ORDERED: BENZTROPINE ME0.5 MG (11:47)
[2019-06-29] MEDS ORDERED: GABAPENTIN100 MG (11:47)
[2019-06-29] MEDS ORDERED: CARVEDILOL12.5 MG (11:47)
[2019-06-29] MEDS ORDERED: DIVALPROEX SOD250 MG (11:47)
[2019-06-29] MEDS ORDERED: CLONIDINE HCL0.2 MG (11:47)
--- NOTE | 2019-06-29 11:50 | Diagnostic Imaging Report ---
EXAMINATION: CHEST SINGLE (PORTABLE) INDICATION: Altered mental status COMPARISON: Chest radiograph of 10/22/2017 FINDINGS: LINES/TUBES:EKG leads overlie the chest. LUNGS:The lungs are well-inflated. No focal consolidation or pulmonary edema. PLEURA:No pleural effusion or pneumothorax. MEDIASTINUM:The cardiomediastinal silhouette appears unchanged in size and shape. Atherosclerotic calcifications of the thoracic aorta. BONES/SOFT TISSUES:No acute osseous injury. ABDOMEN:No free air under the diaphragm. Status post cholecystectomy. IMPRESSION: No focal pneumonia or pulmonary edema. Signed by: Jacklyn Dang MD on 06/29/2019 11:47 AM
--- NOTE | 2019-06-29 11:52 | Diagnostic Imaging Report ---
EXAMINATION: PELVIS AP 1-2 VIEWS INDICATION: Fall COMPARISON: None FINDINGS: No acute fracture or dislocation. Mild diffuse osteopenia. Moderate degenerative changes of both hip joints and the partially visualized lower lumbar spine. Phleboliths in the pelvis. Atherosclerotic arterial calcifications. Implanted device overlies the right iliac crest. IMPRESSION: No acute osseous injury. Moderate degenerative changes of both hip joints and the partially visualized lower lumbar spine. Signed by: Jacklyn Dang MD on 06/29/2019 11:49 AM
--- NOTE | 2019-06-29 12:51 | NUR ---
advised Dr. Montanez that client was becoming more agitated. Dr. Montanez advised to allow patient to take medications for agitation. Client was medicated by spouse at bedside with this nurse witnessing. client took medication and did not have any trouble swallowing pills with water.
[2019-06-29] MEDS ORDERED: ASPIRIN 81 MG CHEW TAB PO STA (13:02)
[2019-06-29] MEDS ORDERED: ASPIR 8181 MG PO (13:02)
[2019-06-29] MEDS: SODIUM CHLORIDE 0.9% 1000ML 1,000 ML IV SCH (13:07)
[2019-06-29] MEDS ORDERED: GABAPENTIN 100 MG CAP PO ONE (13:15)
[2019-06-29] MEDS ORDERED: QUETIAPINE FUMARATE 25 MG TAB PO ONE (13:15)
[2019-06-29] MEDS ORDERED: MEMANTINE 10 MG TAB PO ONE (13:15)
[2019-06-29] MEDS ORDERED: DEPAKOTE ER 500MG TAB(ONCE DAILY) PO ONE (13:15)
--- NOTE | 2019-06-29 13:25 | NUR ---
GREEN SEPSIS SHEET DONE AND ON CHART PER PROTOCOL
--- NOTE | 2019-06-29 19:13 | NUR ---
primary shift report from ER taken by Everett CARRASCO, patient pending arrival to the floor, from ER
[2019-06-29] MEDS: PIPERACILLIN/TAZO 2.25 GM 50 ML IV SCH (20:41)
--- NOTE | 2019-06-29 21:47 | NUR ---
PT'S STATES SHE IS ADMINISTERING PT'S ROUTINE HOME MEDICATIONS. STATES HE DOES NOT WANT TO WAIT D/T PT BECOMING AGITATED. PT'S AWARE DR. Pravin ROSE TO CONTINUE HOME MEDICATIONS. PT'S STATES SHE GAVE SEROQUEL 50MG, HYDROXAZINE 25MG, ATORVASTATIN 10MG, GABAPENTIN 100MG, DEPAKOTE 250MG.
--- NOTE | 2019-06-29 23:10 | NUR ---
PT BEING RESTLESS AND AGITATED. PT TAKING OFF CARDIAC LEADS AND SPO2. SPOKE WITH DR. Pravin ROSE ON PHONE REGARDING PT'S STATUS. DR. ROSE GAVE VERBAL ORDERED FOR ATIVAN 0.5MG Q6HR PRN FOR AGITATION. READ BACK ORDER FOR CONFIRMATION.
[2019-06-29] MEDS: LORAZEPAM INJ 2 MG/ML VIAL IV PRN (23:20)
[2019-06-30] VITALS (9 sets, daily range): BP systolic 116–166; BP diastolic 60–84
--- NOTE | 2019-06-30 00:13 | NUR ---
PT MOVED TO HOSPITAL BED. INCONTINENCE CARE PROVIDED. HEALING STAGE 2 PRESSURE ULCER NOTED RT BUTTOCK. ALLEVYN LIFE PATCH PLACED ON SACRUM TO PREVENT FURTHER BREAK DOWN. NAD NOTED AT THIS TIME. BED IS LOCKED AND IN LOWEST POSITION. CALL LIGHT IS IN REACH IF IN NEED OF ASSISTANCE.
--- NOTE | 2019-06-30 02:00 | Diagnostic Imaging Report ---
LOWER LEG RIGHT - 4 views HISTORY: Pain. Fracture. COMPARISON: None available. FINDINGS: Bones: There is a mildly displaced fracture of the proximal tibia metadiaphysis with anterior cortical break. Joints: Mild degenerative changes of the knee and tibiotalar joint. Soft tissues: Oval soft tissue densities in the anterior proximal lower leg, the largest laterally measuring 5.5 cm, and the smaller medially located measuring 3.1 cm. Vascular calcifications. IMPRESSION: Mildly displaced fracture of the proximal tibia metadiaphysis. Signed by: Dr. Ashley Ramirez M.D. on 06/30/2019 1:57 AM
--- NOTE | 2019-06-30 03:10 | NUR ---
No family available and unable to obtain vaccine history Addendum: 06/30/19 at 0311 by Penny Kauffman RN Amended: Links added.
[2019-06-30] MEDS: PIPERACILLIN/TAZO 2.25 GM 50 ML IV SCH ×3 (05:00→20:33)
[2019-06-30] MEDS: SODIUM CHLORIDE 0.9% 1000ML 1,000 ML IV SCH (05:55)
[2019-06-30 06:50] LABS: ALBUMIN 2.9 g/dL (3.5-5.0); ANION GAP 19.2 mmol/L (8-16); CALCIUM 9.1 mg/dL (8.4-10.2); CREATININE, SERUM 2.33 mg/dL (0.72-1.25); POTASSIUM 3.2 mmol/L (3.5-5.1)
--- NOTE | 2019-06-30 07:20 | NUR ---
PATIENT IN BED RESTING WITH NO RESPIRATORY DISTRESS. REDNESS AND SWELLING TO RIGHT LEG, WITH OPEN AND CLOSE BLISTERS; ELEVATED ON PILLOW. BED IN LOWER POSITION AND LOCKED, CALL LIGHT AT REACH. BED ALARM ACTIVATED.
[2019-06-30 08:35] LABS: HEMATOCRIT 28.4 % (38.2-49.6); HEMOGLOBIN 9.2 g/dL (14.0-18.0); LYMPHOCYTES % 9.2 % (18.0-39.1); MEAN CORPUSCULAR HEMOGLOBIN 30.4 pg (28-32); MEAN CORPUSCULAR HGB CONC 32.4 g/dL (31-35); MEAN CORPUSCULAR VOLUME 93.7 fL (81-99); MONOCYTES % 10.2 % (4.4-11.3); NEUTROPHILS % 78.5 % (38.7-80.0); PLATELET COUNT 209 x10e3/uL (140-360); RED BLOOD COUNT 3.03 x10e6/uL (4.3-5.7); RED CELL DISTRIBUTION WIDTH 12.6 % (11.7-14.4)
[2019-06-30 08:36] LABS: BASOPHILS % 0.5 % (0.0-1.0); EOSINOPHILS # (AUTO) 0.1 (0.0-0.4); EOSINOPHILS % 1.2 % (0.0-6.0); LYMPHOCYTES # (AUTO) 0.7 (1.0-3.2); MONOCYTES # (AUTO) 0.7 (0.2-0.8); NEUTROPHILS # (AUTO) 5.7 (2.1-6.9)
--- NOTE | 2019-06-30 10:26 | NUR ---
SPOKE WITH MD REGARDING ABNORMAL LAB RESULT, NEW ORDER RECEIVED.
[2019-06-30] MEDS ORDERED: POTASSIUM CHLORIDE 10MEQ EA PO NR (10:30)
--- NOTE | 2019-06-30 14:11 | NUR ---
WOUND CARE CONSULT FOR 78 YO MALE HX AMS, CELLULITIS, FALL, FX RT LOWER LEG ,RENAL INSUF CARLOS 14 MODERATE PUP ALTERNATING PRESSURE MATTRESS LABS: WBC- 9.63, HGB- 10.8,GLUCOSE - 151 SKIN ASSESSMENT COMPLETE PATIENT PRESENTS WITH PARTIAL THICKNESS WOUNDS TO RIGHT LOWER LEG R/T CELLULITIS RIGHT LATERAL LOWER LEG DEROOFED BLISTER 5CM X3CM X.1CM RIGHT DORSAL LOWER LOWER LEG FLUID FILLED BLISTER 5CM X6CM RIGHT GLUTEAL STAGE 2 ULCERATION 1CM X1CMX .1CM RECOMMENDATIONS : NURSING TO CONTINUE TO MAINTAIN MODERATE PUP STATUS AND INTERVENTIONS AND ALTERNATING PRESSURE SURFACE NURSING TO CONTINUE TO ASSIST PATIENT UP FOR MEALS AND MUCH TOLERATED NURSING TO CLEAN GLUTEAL STAGE 2 ULCERATION WITH NS DAILY APPLY VENELEX OINTMENT COVER WITH ALLEVYN FOAM DRESSING NURSING TO CLEAN PARTIAL THICKNESS WOUNDS WITH NS DAILY APPLY VENELEX OINTMENT LEAVE OPEN TO AIR Addendum: 06/30/19 at 1430 by Son Cam RN Amended: Links added.
--- NOTE | 2019-06-30 15:20 | NUR ---
Visit made by the Spiritual Care Department Pastoral Visitor, Rosalia Candelario. Pt sleeping soundly and no family present. Pastoral Visitor left a card describing availability of babcock tester and instructions on how to contact a babcock tester. ISRAEL ELLIS Web Production Manager Spiritual Care Department O: [phone] Pager: [phone] ([phone] number calling from)
--- NOTE | 2019-06-30 15:22 | NUR ---
PATIENT C/O CONSTIPATION, NOTIFIED, NEW ORDER RECEIVED.
--- NOTE | 2019-06-30 17:44 | NUR ---
LACTULOSE OFFERED, PATIENT SAID THAT HE WILL TAKE IT LATER.
[2019-06-30] MEDS ORDERED: SODIUM CHLORIDE 0.9% 250ML 250 ML ONE (19:49)
[2019-06-30] MEDS: ONDANSETRON HCL INJ 2MG/ML 2ML 2 MG/ML VIAL IV PRN (20:37)
[2019-06-30] MEDS: MORPHINE SULFATE 2 MG/ML SYR 1ML IV PRN (20:37)
[2019-06-30] MEDS: LACTULOSE SYRUP 20 GM/30 ML UDC PO PRN (20:37)
[2019-07-01] VITALS (9 sets, daily range): BP systolic 110–149; BP diastolic 67–83
--- NOTE | 2019-07-01 04:30 | NUR ---
Patient restless and removed brace and dressing to RLE. Educated on importance of brace, verbalized understanding. Brace reapplied and assessed pain. Patient denies pain at this time, will continue to monitor.
[2019-07-01] MEDS: PIPERACILLIN/TAZO 2.25 GM 50 ML IV SCH ×3 (04:55→21:05)
[2019-07-01] MEDS: ONDANSETRON HCL INJ 2MG/ML 2ML 2 MG/ML VIAL IV PRN (06:00)
[2019-07-01] MEDS: MORPHINE SULFATE 2 MG/ML SYR 1ML IV PRN ×3 (06:00→14:56)
--- NOTE | 2019-07-01 06:00 | NUR ---
Patient in bed and attempting to remove brace and dressing. Education reinforced regarding brace and necessity, verbalized understanding. Brace adjusted. Patient reports pain to RLE 7/10, med for pain with PRN orders. Bed alarm on, call light within reach, Will continue to monitor closely.
[2019-07-01] MEDS: BALSAM PERU/CASTOR OIL 60 GM OINT...G. TP SCH ×2 (09:11→22:42)
[2019-07-01] MEDS: LACTULOSE SYRUP 20 GM/30 ML UDC PO PRN (10:15)
--- NOTE | 2019-07-01 15:10 | NUR ---
Nutrition Screen Note RD Recommendation for Physician: - Continue current diet Plan of Care: RD following, monitoring for tolerance and adequacy Nutrition reason for involvement: Nutrition Risk Trigger- MST2 Primary Diagnose(s): AMS, cellulitis, fall PMH: HTN, Afib, dementia Ht: 73 in Wt: 178.38 lb BMI: 23.5 kg/m2 IBW: [address] Assessment: (07/01) 78 YOM admitted for MAS, cellulitis, and fall. Pt seen today per MST screen. 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 Pt denies any difficulties chewing or swallowing and denies any N/V/C/D. Pt and pt's daughter at bedside with no questions or concerns at time of visit. Noted pt with stage II R gluteal PU on admit. Pt refused all supplements offered. Chart reviewed. Labs and meds reviewed. Will continue to monitor. Current Diet: Cardiac Malnutrition Evaluation (07/01/19) The patient does not meet criteria for a specified degree of malnutrition at this time. Will re-evaluate at follow-up as appropriate. 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 Diet tolerance: tolerating po Nutrition Care Level: low Signed: Cecily Khan RD, LD, [facility]
[2019-07-01] MEDS: ENOXAPARIN SOD INJ 40 MG/0.4 ML SYR SC SCH (17:11)
--- NOTE | 2019-07-01 19:16 | NUR ---
Received bedside report from day nurse. Patient resting in bed, no s/s of distress or c/o pain at this time. All safety measures in place.
--- NOTE | 2019-07-01 20:07 | NUR ---
Informed by PCT that patient is 87% on RA, HR 136. Put patient on 2L O2 NC. O2 stat 97%, HR 83. No s/s of distress or c/o pain at this time.
[2019-07-02] VITALS (8 sets, daily range): BP systolic 96–177; BP diastolic 64–86
[2019-07-02] MEDS: ONDANSETRON HCL INJ 2MG/ML 2ML 2 MG/ML VIAL IV PRN ×2 (00:13→21:46)
[2019-07-02] MEDS: MORPHINE SULFATE 2 MG/ML SYR 1ML IV PRN ×4 (00:13→21:46)
--- NOTE | 2019-07-02 00:13 | NUR ---
Patient's blood pressure 163/77. C/o pain to right leg. Administered PRN morphine.
--- NOTE | 2019-07-02 01:35 | NUR ---
Patient trying to get out of bed. Re-oriented to room. Educated provided on safety precautions. Bed locked and in low position, side rails up, bed alarm on, call light placed within reach. Instructed to call for assistance if needed. Verbalized understanding. Ice pack applied to right upper leg for c/o pain.
[2019-07-02] MEDS: LORAZEPAM INJ 2 MG/ML VIAL IV PRN ×2 (01:56→21:46)
[2019-07-02] MEDS: PIPERACILLIN/TAZO 2.25 GM 50 ML IV SCH ×3 (03:58→21:46)
[2019-07-02] MEDS ORDERED: SODIUM CHLORIDE 0.9% 250ML 250 ML ONE (03:58)
--- NOTE | 2019-07-02 07:24 | NUR ---
Bedside report given to oncoming nurse. Patient resting in bed, no s/s of distress at this time. All safety measures in place.
[2019-07-02] MEDS: ENOXAPARIN SOD INJ 40 MG/0.4 ML SYR SC SCH (17:14)
[2019-07-03] VITALS: BP 148/71
[2019-07-03] MEDS: PIPERACILLIN/TAZO 2.25 GM 50 ML IV SCH ×2 (03:54→11:45)
[2019-07-03 04:00] VITALS: BP 157/80
[2019-07-03] MEDS: MORPHINE SULFATE 2 MG/ML SYR 1ML IV PRN ×2 (05:05→08:56)
--- NOTE | 2019-07-03 07:09 | NUR ---
bedside shift report completed with oncoming nurse. patient is resting comfortably in the bed. Bed is in lowest position and call newman is within reach.
[2019-07-03 08:00] VITALS: BP 139/71
[2019-07-03] MEDS: ONDANSETRON HCL INJ 2MG/ML 2ML 2 MG/ML VIAL IV PRN (08:56)
--- NOTE | 2019-07-03 09:22 | NUR ---
LONG-TERM ACUTE CARE DISCHARGE INFORMATION PATIENT HAS BEEN ACCEPTED TO: [address] [place] [address] ACCEPTING SORTER PRICER: Charlotte Barrera, WIRE COATING MACHINE OPERATOR ACCEPTING MD: Dr. Ballesteros ROOM: 504 NURSE CALL REPORT TO: [phone] THE FOLLOWING DOCUMENTS MUST ACCOMPANY PATIENT FOR TRANSFER: copy of chart. transfer MAR COPIED CHART: Tiffany community outreach specialist MOT INFO RECEIVED FROM: Ale Rubio PHYSICIANS ORDER/RECONCILED MED LIST: to be obtained by bedside RN [id number] DNR: n/a Dr. Ballesteros and LUNA Tejada was notified of MOT. CM called pt's Nadiya and informed her of bed assignment. States she will be up at the hospital shortly. Addendum: 07/03/19 at 1017 by Lulu Estes CM MOT was completed and given to community outreach specialist Tiffany.
[2019-07-03 09:26] VITALS: BP 139/71
[2019-07-03] MEDS: BALSAM PERU/CASTOR OIL 60 GM OINT...G. TP SCH (10:53)
[2019-07-03 12:00] VITALS: BP 134/82
--- NOTE | 2019-07-03 12:01 | NUR ---
GAVE REPORT TO LUNA DELVALLE AT [facility].
== END 2019-07-03 13:33 | DRG 871 ==
LOC: ER 09:57 → ERHOLD 12:00 → MED/SURG3 06-30 01:15
DX: A41.9 Sepsis, unspecified organism (principal); G93.41 Metabolic encephalopathy; S82.234A Nondisplaced oblique fracture of shaft of right tibia, initial encounter for closed fracture; L03.115 Cellulitis of right lower limb; F02.81 Dementia in other diseases classified elsewhere, unspecified severity, with behavioral disturbance; F05 Delirium due to known physiological condition; I25.10 Atherosclerotic heart disease of native coronary artery without angina pectoris; I48.0 Paroxysmal atrial fibrillation; Z79.01 Long term (current) use of anticoagulants; I35.0 Nonrheumatic aortic (valve) stenosis; G30.1 Alzheimer's disease with late onset
CPT/HCPCS: 36415; 70450; 71045; 72125; 72170; 80053; 80164; 81001; 82140; 82550; 82553; 83518; 83605; 83735; 83880; 84484; 85025; 85610; 85730; 87040; 87070; 87086; 87205; 87400; 93005; 93971; 97139; 99284; J1650; J2060; J2270; J2405; J2543; J3370; J7030; J7040; J7050

== ENCOUNTER 2020-03-22 19:34 | Inpatient (IN) | payer MEDICARE, BC ==
[~2020-03-22] VITALS: Ht 188 cm; Wt 81.6 kg
[~2020-03-22 19:34] MED LIST changes: +ASPIR 8181 MG PO; +BUMETANIDE2 MG PO; +CARVEDILOL12.5 MG; +CLONIDINE HCL0.2 MG; +DIVALPROEX SOD250 MG; +ESIDRIX25 MG PO; +GABAPENTIN100 MG; +MEMANTINE HCL10 MG PO; +MUPIROCIN22 GM; +NIFEDIPINE ER60 M1; +POTASSIUM; +POTASSIUM CHLO20 ME1; +QUETIAPINE FUMA25 MG PO; +SPIRONOLACTONE25 MG; +ULTRAM 50MG50 MG
[2020-03-22] MEDS ORDERED: HYDROCODONE/APAP 5MG-325MG TAB PO ONE (20:00)
[2020-03-22 22:43] LABS: BASOPHILS # (AUTO) 0.1 (0.0-0.1); BASOPHILS % 0.4 % (0.0-1.0); EOSINOPHILS # (AUTO) 0.1 (0.0-0.4); EOSINOPHILS % 0.9 % (0.0-6.0); HEMATOCRIT 33.1 % (38.2-49.6); HEMOGLOBIN 10.8 g/dL (14.0-18.0); LYMPHOCYTES # (AUTO) 1.2 (1.0-3.2); LYMPHOCYTES % 9.8 % (18.0-39.1); MEAN CORPUSCULAR HEMOGLOBIN 29.8 pg (28-32); MEAN CORPUSCULAR HGB CONC 32.6 g/dL (31-35); MEAN CORPUSCULAR VOLUME 91.4 fL (81-99); MONOCYTES # (AUTO) 0.9 (0.2-0.8); MONOCYTES % 7.3 % (4.4-11.3); NEUTROPHILS # (AUTO) 9.5 (2.1-6.9); NEUTROPHILS % 81.2 % (38.7-80.0); PLATELET COUNT 211 x10e3/uL (140-360); RED BLOOD COUNT 3.62 x10e6/uL (4.3-5.7); RED CELL DISTRIBUTION WIDTH 13.9 % (11.7-14.4)
[2020-03-22] MEDS: MORPHINE SULFATE INJ 4 MG/ML INJ 1ML IV PRN (22:48)
[2020-03-22] MEDS: ONDANSETRON HCL INJ 2MG/ML 2ML 2 MG/ML VIAL IV PRN (22:48)
[2020-03-22] MEDS: SODIUM CHLORIDE 0.9% 1000ML 1,000 ML IV SCH (22:48)
[2020-03-22 23:03] LABS: ALBUMIN 3.2 g/dL (3.5-5.0); ANION GAP 17.9 mmol/L (8-16); CALCIUM 9.3 mg/dL (8.4-10.2); CREATININE, SERUM 2.12 mg/dL (0.72-1.25)
[2020-03-22 23:04] LABS: POTASSIUM 2.9 mmol/L (3.5-5.1)
[2020-03-22 23:11] VITALS: BP_SYST 132; BP_SYST 134; BP_DIAS 68; BP_DIAS 70
[2020-03-22] MEDS ORDERED: POTASSIUM CHLORIDE 20 MEQ TAB CR PO STA (23:14)
[2020-03-23] VITALS (9 sets, daily range): BP systolic 83–114; BP diastolic 56–64
[2020-03-23] MEDS ORDERED: PROPRANOLOL PO (00:44)
[2020-03-23] MEDS: BENZTROPINE MESYLATE 1 MG TAB PO SCH ×2 (01:50→20:49)
[2020-03-23] MEDS: DIVALPROEX SODIUM 250 MG TAB...DR PO SCH ×4 (01:50→20:49)
[2020-03-23] MEDS: QUETIAPINE FUMARATE 25 MG TAB PO SCH ×3 (01:50→20:58)
[2020-03-23 05:35] LABS: BASOPHILS % 0.5 % (0.0-1.0); EOSINOPHILS # (AUTO) 0.1 (0.0-0.4); EOSINOPHILS % 0.7 % (0.0-6.0); HEMATOCRIT 28.4 % (38.2-49.6); HEMOGLOBIN 9.3 g/dL (14.0-18.0); LYMPHOCYTES # (AUTO) 1.2 (1.0-3.2); LYMPHOCYTES % 15.9 % (18.0-39.1); MEAN CORPUSCULAR HGB CONC 32.7 g/dL (31-35); MEAN CORPUSCULAR VOLUME 91.6 fL (81-99); MONOCYTES # (AUTO) 0.8 (0.2-0.8); MONOCYTES % 10.8 % (4.4-11.3); NEUTROPHILS # (AUTO) 5.3 (2.1-6.9); NEUTROPHILS % 71.8 % (38.7-80.0); PLATELET COUNT 172 x10e3/uL (140-360); RED CELL DISTRIBUTION WIDTH 13.9 % (11.7-14.4)
[2020-03-23] MEDS: SODIUM CHLORIDE 0.9% 1000ML 1,000 ML IV SCH ×2 (06:15→18:00)
[2020-03-23] MEDS: ONDANSETRON HCL INJ 2MG/ML 2ML 2 MG/ML VIAL IV PRN (06:32)
[2020-03-23] MEDS: MORPHINE SULFATE INJ 4 MG/ML INJ 1ML IV PRN (06:36)
[2020-03-23 09:35] LABS: ALBUMIN 2.7 g/dL (3.5-5.0); ANION GAP 14.8 mmol/L (8-16); CALCIUM 8.3 mg/dL (8.4-10.2); CREATININE, SERUM 1.89 mg/dL (0.72-1.25)
[2020-03-23 09:38] LABS: POTASSIUM 2.8 mmol/L (3.5-5.1)
[2020-03-23] MEDS ORDERED: POTASSIUM CHLORIDE 20MEQ/100ML 100 ML IV ONE (10:15)
[2020-03-23 10:27] LABS: CLARITY,URINE CLEAR (CLEAR); COLOR,URINE YELLOW (YELLOW)
[2020-03-23] MEDS: MORPHINE SULFATE 2 MG/ML SYR 1ML IV PRN ×2 (10:27→15:10)
[2020-03-23 10:28] LABS: BILIRUBIN,URINE NEGATIVE (NEGATIVE); KETONES,URINE NEGATIVE (NEGATIVE); LEUKOCYTE ESTERASE ,URINE NEGATIVE (NEGATIVE); NITRITE,URINE NEGATIVE (NEGATIVE); PROTEIN,URINE DIPSTICK NEGATIVE (NEGATIVE); URINE UROBILINOGEN 0.2 mg/dL (0.2 - 1)
[2020-03-23] MEDS ORDERED: POTASSIUM CHLORIDE 20 MEQ TAB CR PO ONE ×2 (10:30→17:00)
[2020-03-23] MEDS ORDERED: MORPHINE SULFATE INJ 4 MG/ML INJ 1ML IV PRN (10:30)
[2020-03-23] MEDS ORDERED: MORPHINE SULFATE 2 MG/ML SYR 1ML IV ONE (10:30)
[2020-03-23 10:45] LABS: RBC,URINE 0-5 /HPF (0-5); WBC,URINE (MAN) 0-5 /HPF (0-5)
[2020-03-23 10:46] LABS: BACTERIA,URINE RARE /HPF; EPITHELIAL CELLS,URINE RARE /LPF
[2020-03-23] MEDS ORDERED: ATORVASTATIN CA10 MG PO (11:47)
[2020-03-23] MEDS ORDERED: BENZTROPINE ME0.5 MG PO (11:47)
[2020-03-23] MEDS: CLINDAMYCIN 600MG / 50ML 50 ML IV SCH ×2 (14:00→17:59)
[2020-03-23] MEDS ORDERED: MAGNESIUM SULF 1GRAM/DEXTROSE 100 ML IV ONE (14:30)
[2020-03-23 14:31] LABS: ALBUMIN 2.7 g/dL (3.5-5.0); ANION GAP 16.3 mmol/L (8-16); CALCIUM 8.4 mg/dL (8.4-10.2); CREATININE, SERUM 2.02 mg/dL (0.72-1.25); POTASSIUM 3.3 mmol/L (3.5-5.1)
[2020-03-23] MEDS: MEMANTINE 10 MG TAB PO SCH (15:10)
[2020-03-23] MEDS ORDERED: CEFAZOLIN SOD 1 GM/NS 50ML 100 ML IV ONE (15:45)
[2020-03-23] MEDS ORDERED: SODIUM CHLORIDE 0.9% 1000ML 2,450 ML IV ONE (19:45)
[2020-03-23] MEDS ORDERED: SODIUM CHLORIDE 0.9% 1000ML 1,000 ML IV ONE (20:15)
[2020-03-23] MEDS ORDERED: CEFEPIME 1GM/NS 0.9% 50 ML 50 ML IV SCH (20:45)
[2020-03-23] MEDS ORDERED: VANCOMYCIN 1GM/NS 250 ML 250 ML IV ONE (20:45)
[2020-03-23] MEDS: ACETAMINOPHEN 325 MG TAB PO PRN (20:49)
[2020-03-23] MEDS: ATORVASTATIN 10 MG TAB PO SCH (20:49)
[2020-03-23] MEDS ORDERED: SODIUM CHLORIDE 0.9% 1000ML 1,000 ML IV SCH (21:00)
[2020-03-24] VITALS (7 sets, daily range): BP systolic 101–118; BP diastolic 53–63
[2020-03-24] MEDS: SODIUM CHLORIDE 0.9% 1000ML 1,000 ML IV SCH ×2 (03:12)
[2020-03-24] MEDS: ONDANSETRON HCL INJ 2MG/ML 2ML 2 MG/ML VIAL IV PRN (04:12)
[2020-03-24] MEDS: MORPHINE SULFATE 2 MG/ML SYR 1ML IV PRN ×4 (04:12→16:56)
[2020-03-24 05:43] LABS: CALCIUM IONIZED 1.2 mmol/L (1.09-1.30)
[2020-03-24 06:01] LABS: ALBUMIN 2.2 g/dL (3.5-5.0); ALBUMIN/GLOBULIN RATIO 0.9 (0.8-2.0); ANION GAP 11.7 mmol/L (8-16); CALCIUM 7.7 mg/dL (8.4-10.2); CREATININE, SERUM 1.79 mg/dL (0.72-1.25); PHOSPHORUS 2.5 MG/DL (2.3-4.7); POTASSIUM 3.7 mmol/L (3.5-5.1)
[2020-03-24 06:13] LABS: INR 1.1; PROTHROMBIN TIME 14.8 seconds (11.9-14.5)
[2020-03-24 06:14] LABS: PARTIAL THROMBOPLASTIN TIME 43.8 seconds (23.8-35.5)
[2020-03-24 06:27] LABS: BASOPHILS % 0.5 % (0.0-1.0); EOSINOPHILS # (AUTO) 0.1 (0.0-0.4); EOSINOPHILS % 1.3 % (0.0-6.0); HEMATOCRIT 22.9 % (38.2-49.6); LYMPHOCYTES # (AUTO) 1.1 (1.0-3.2); LYMPHOCYTES % 18.6 % (18.0-39.1); MEAN CORPUSCULAR HEMOGLOBIN 30.3 pg (28-32); MEAN CORPUSCULAR HGB CONC 31.9 g/dL (31-35); MONOCYTES # (AUTO) 0.7 (0.2-0.8); MONOCYTES % 11.2 % (4.4-11.3); NEUTROPHILS # (AUTO) 4.1 (2.1-6.9); NEUTROPHILS % 68.1 % (38.7-80.0); RED BLOOD COUNT 2.41 x10e6/uL (4.3-5.7); RED CELL DISTRIBUTION WIDTH 14.2 % (11.7-14.4)
[2020-03-24 06:34] LABS: HEMOGLOBIN 7.3 g/dL (14.0-18.0); PLATELET COUNT 103 x10e3/uL (140-360)
[2020-03-24] MEDS ORDERED: SODIUM CHLORIDE 0.9% 250ML 250 ML IV SCH (07:45)
[2020-03-24] MEDS: DIVALPROEX SODIUM 250 MG TAB...DR PO SCH ×3 (09:00→21:18)
[2020-03-24] MEDS: BALSAM PERU/CASTOR OIL 60 GM OINT...G. TP SCH (09:00)
[2020-03-24] MEDS: HYDROCHLOROTHIAZIDE 25 MG TAB PO SCH (09:00)
[2020-03-24] MEDS: MEMANTINE 10 MG TAB PO SCH ×2 (09:00→16:56)
[2020-03-24] MEDS: CEFEPIME 1GM/NS 0.9% 50 ML 50 ML IV SCH (12:36)
[2020-03-24] MEDS ORDERED: SODIUM CHLORIDE 0.9% 250ML 250 ML ONE (14:30)
[2020-03-24] MEDS: VANCOMYCIN 1GM/NS 250 ML 250 ML IV SCH (18:00)
[2020-03-24] MEDS ORDERED: FUROSEMIDE INJ 10 MG/ML 2 ML VIAL IV ONE (18:30)
[2020-03-24 20:31] LABS: BASOPHILS % 0.6 % (0.0-1.0); EOSINOPHILS # (AUTO) 0.1 (0.0-0.4); HEMATOCRIT 31.2 % (38.2-49.6); HEMOGLOBIN 10.1 g/dL (14.0-18.0); LYMPHOCYTES % 13.7 % (18.0-39.1); MEAN CORPUSCULAR HEMOGLOBIN 30.7 pg (28-32); MEAN CORPUSCULAR HGB CONC 32.4 g/dL (31-35); MEAN CORPUSCULAR VOLUME 94.8 fL (81-99); MONOCYTES # (AUTO) 0.8 (0.2-0.8); MONOCYTES % 11.4 % (4.4-11.3); NEUTROPHILS # (AUTO) 5.1 (2.1-6.9); NEUTROPHILS % 71.5 % (38.7-80.0); PLATELET COUNT 107 x10e3/uL (140-360); RED BLOOD COUNT 3.29 x10e6/uL (4.3-5.7); RED CELL DISTRIBUTION WIDTH 15.2 % (11.7-14.4); RETICULOCYTE % 1.3 % (0.8-2.2)
[2020-03-24 21:12] LABS: FERRITIN 252.93 ng/mL (21.81-274.66); THYROID STIMULATING HORMONE 1.296 uIU/mL (0.350-4.940)
[2020-03-24] MEDS: ATORVASTATIN 10 MG TAB PO SCH (21:18)
[2020-03-24] MEDS: BENZTROPINE MESYLATE 1 MG TAB PO SCH (21:18)
[2020-03-24] MEDS: QUETIAPINE FUMARATE 25 MG TAB PO SCH (21:19)
[2020-03-24] MEDS: ACETAMINOPHEN 325 MG TAB PO PRN (21:19)
[2020-03-25] VITALS (8 sets, daily range): BP systolic 90–154; BP diastolic 51–82
[2020-03-25] MEDS: SODIUM CHLORIDE 0.9% 1000ML 1,000 ML IV SCH ×5 (03:26→22:05)
[2020-03-25 05:22] LABS: BASOPHILS # (AUTO) 0.1 (0.0-0.1); BASOPHILS % 0.7 % (0.0-1.0); EOSINOPHILS # (AUTO) 0.2 (0.0-0.4); HEMATOCRIT 31.8 % (38.2-49.6); HEMOGLOBIN 10.3 g/dL (14.0-18.0); LYMPHOCYTES # (AUTO) 1.2 (1.0-3.2); LYMPHOCYTES % 17.6 % (18.0-39.1); MEAN CORPUSCULAR HEMOGLOBIN 30.1 pg (28-32); MEAN CORPUSCULAR HGB CONC 32.4 g/dL (31-35); MONOCYTES # (AUTO) 0.8 (0.2-0.8); MONOCYTES % 11.7 % (4.4-11.3); NEUTROPHILS # (AUTO) 4.5 (2.1-6.9); NEUTROPHILS % 66.6 % (38.7-80.0); PLATELET COUNT 100 x10e3/uL (140-360); RED BLOOD COUNT 3.42 x10e6/uL (4.3-5.7)
[2020-03-25 05:34] LABS: INR 1.01; PROTHROMBIN TIME 13.8 seconds (11.9-14.5)
[2020-03-25 05:52] LABS: CALCIUM IONIZED 1.2 mmol/L (1.09-1.30)
[2020-03-25 06:04] LABS: ALBUMIN 2.3 g/dL (3.5-5.0); ALBUMIN/GLOBULIN RATIO 0.8 (0.8-2.0); ANION GAP 13.5 mmol/L (8-16); CALCIUM 8.2 mg/dL (8.4-10.2); CREATININE, SERUM 1.63 mg/dL (0.72-1.25); MAGNESIUM 1.8 MG/DL (1.3-2.1); PHOSPHORUS 2.4 MG/DL (2.3-4.7); POTASSIUM 3.5 mmol/L (3.5-5.1)
[2020-03-25] MEDS: ONDANSETRON HCL INJ 2MG/ML 2ML 2 MG/ML VIAL IV PRN (06:29)
[2020-03-25] MEDS: MORPHINE SULFATE 2 MG/ML SYR 1ML IV PRN ×3 (06:30→16:04)
[2020-03-25] MEDS: HYDROCHLOROTHIAZIDE 25 MG TAB PO SCH ×2 (09:00→17:04)
[2020-03-25] MEDS: DIVALPROEX SODIUM 250 MG TAB...DR PO SCH ×3 (09:00→22:05)
[2020-03-25] MEDS: MEMANTINE 10 MG TAB PO SCH ×2 (09:00→17:04)
[2020-03-25] MEDS: CEFEPIME 1GM/NS 0.9% 50 ML 50 ML IV SCH (10:36)
[2020-03-25] MEDS ORDERED: ACETAMINOPHEN 1000 MG/100 ML 100 ML IV ONE (10:48)
[2020-03-25] MEDS: BALSAM PERU/CASTOR OIL 60 GM OINT...G. TP SCH (12:53)
[2020-03-25] MEDS ORDERED: DEXAMETHASONE SOD PHOS INJ 4 MG/ML VIAL ONE (12:57)
[2020-03-25] MEDS ORDERED: ONDANSETRON HCL INJ 2MG/ML 2ML 2 MG/ML VIAL ONE (12:57)
[2020-03-25] MEDS ORDERED: LIDOCAINE HCL 2% LOCAL INJ 5 ML SDV VIAL INJ ONE (12:57)
[2020-03-25] MEDS ORDERED: EPHEDRINE SULFATE INJ 50 MG/ML VIAL ONE (12:57)
[2020-03-25] MEDS ORDERED: SEVOFLURANE INHAL SOLN 250 ML PEN BTL ONE (12:57)
[2020-03-25] MEDS ORDERED: PROPOFOL IV EMULSION 10 MG/ML 20 ML VIAL ONE (12:57)
[2020-03-25] MEDS ORDERED: CEFAZOLIN SOD 1 GM/NS 50ML 50 ML IV ONE (13:33)
[2020-03-25] MEDS ORDERED: NALOXONE HCL INJ 0.4 MG/ML AMP IV PRN (14:30)
[2020-03-25] MEDS ORDERED: HYDROMORPHONE 0.2MG/ML-SOD CHL 30ML PCA SYRINGE IV PRN (14:30)
[2020-03-25] MEDS ORDERED: ACETAMINOPHEN 1000 MG/100 ML IV PRN (14:30)
[2020-03-25] MEDS ORDERED: ONDANSETRON HCL INJ 2MG/ML 2ML 2 MG/ML VIAL IV PRN (14:30)
[2020-03-25] MEDS ORDERED: FENTANYL CITRATE/PF 100MCG/2 ML INJ ONE (17:06)
[2020-03-25] MEDS: VANCOMYCIN 1GM/NS 250 ML 250 ML IV SCH (17:06)
[2020-03-25] MEDS: CEFAZOLIN SOD 1 GM/NS 50ML 50 ML IV SCH (22:05)
[2020-03-25] MEDS: QUETIAPINE FUMARATE 25 MG TAB PO SCH (22:05)
[2020-03-25] MEDS: ATORVASTATIN 10 MG TAB PO SCH (22:05)
[2020-03-25] MEDS: BENZTROPINE MESYLATE 1 MG TAB PO SCH (22:05)
[2020-03-26] VITALS (9 sets, daily range): BP systolic 114–130; BP diastolic 64–79
[2020-03-26] MEDS: SODIUM CHLORIDE 0.9% 1000ML 1,000 ML IV SCH ×4 (02:24→21:59)
[2020-03-26 05:24] LABS: BASOPHILS % 0.3 % (0.0-1.0); HEMATOCRIT 27.7 % (38.2-49.6); HEMOGLOBIN 8.9 g/dL (14.0-18.0); LYMPHOCYTES # (AUTO) 0.4 (1.0-3.2); LYMPHOCYTES % 4.7 % (18.0-39.1); MEAN CORPUSCULAR HEMOGLOBIN 29.9 pg (28-32); MEAN CORPUSCULAR HGB CONC 32.1 g/dL (31-35); MONOCYTES # (AUTO) 0.6 (0.2-0.8); MONOCYTES % 8.1 % (4.4-11.3); NEUTROPHILS # (AUTO) 6.6 (2.1-6.9); NEUTROPHILS % 86.5 % (38.7-80.0); PLATELET COUNT 107 x10e3/uL (140-360); RED BLOOD COUNT 2.98 x10e6/uL (4.3-5.7); RED CELL DISTRIBUTION WIDTH 14.6 % (11.7-14.4)
[2020-03-26] MEDS: CEFAZOLIN SOD 1 GM/NS 50ML 50 ML IV SCH ×2 (05:34→14:45)
[2020-03-26 05:42] LABS: ALBUMIN/GLOBULIN RATIO 0.7 (0.8-2.0); ANION GAP 11.8 mmol/L (8-16); CALCIUM 7.9 mg/dL (8.4-10.2); CREATININE, SERUM 1.54 mg/dL (0.72-1.25); POTASSIUM 3.8 mmol/L (3.5-5.1)
[2020-03-26] MEDS: RIVAROXABAN 10 MG TABLET PO SCH ×2 (08:00→11:24)
[2020-03-26] MEDS: HYDROCHLOROTHIAZIDE 25 MG TAB PO SCH ×2 (08:23→11:24)
[2020-03-26] MEDS: MEMANTINE 10 MG TAB PO SCH ×3 (08:23→16:48)
[2020-03-26] MEDS: DIVALPROEX SODIUM 250 MG TAB...DR PO SCH ×4 (08:23→21:50)
[2020-03-26] MEDS: BALSAM PERU/CASTOR OIL 60 GM OINT...G. TP SCH (09:00)
[2020-03-26] MEDS: MORPHINE SULFATE 2 MG/ML SYR 1ML IV PRN ×2 (11:22→18:43)
[2020-03-26] MEDS: ACETAMINOPHEN 325 MG TAB PO PRN (16:48)
[2020-03-26] MEDS: QUETIAPINE FUMARATE 25 MG TAB PO SCH (21:50)
[2020-03-26] MEDS: ATORVASTATIN 10 MG TAB PO SCH (21:50)
[2020-03-26] MEDS: BENZTROPINE MESYLATE 1 MG TAB PO SCH (21:50)
[2020-03-27] VITALS (9 sets, daily range): BP systolic 129–153; BP diastolic 66–83
[2020-03-27 06:39] LABS: BASOPHILS % 0.4 % (0.0-1.0); EOSINOPHILS # (AUTO) 0.2 (0.0-0.4); EOSINOPHILS % 2.1 % (0.0-6.0); HEMATOCRIT 27.6 % (38.2-49.6); LYMPHOCYTES # (AUTO) 1.1 (1.0-3.2); LYMPHOCYTES % 15.9 % (18.0-39.1); MEAN CORPUSCULAR HEMOGLOBIN 31.1 pg (28-32); MEAN CORPUSCULAR HGB CONC 32.6 g/dL (31-35); MEAN CORPUSCULAR VOLUME 95.5 fL (81-99); MONOCYTES # (AUTO) 0.8 (0.2-0.8); PLATELET COUNT 121 x10e3/uL (140-360); RED BLOOD COUNT 2.89 x10e6/uL (4.3-5.7); RED CELL DISTRIBUTION WIDTH 14.6 % (11.7-14.4)
[2020-03-27 07:27] LABS: ALBUMIN/GLOBULIN RATIO 0.7 (0.8-2.0); ANION GAP 10.6 mmol/L (8-16); CALCIUM 8.1 mg/dL (8.4-10.2); CREATININE, SERUM 1.34 mg/dL (0.72-1.25); POTASSIUM 3.6 mmol/L (3.5-5.1)
[2020-03-27] MEDS: MORPHINE SULFATE 2 MG/ML SYR 1ML IV PRN ×2 (08:19→13:30)
[2020-03-27] MEDS: DIVALPROEX SODIUM 250 MG TAB...DR PO SCH ×3 (08:20→21:01)
[2020-03-27] MEDS: BALSAM PERU/CASTOR OIL 60 GM OINT...G. TP SCH (08:21)
[2020-03-27] MEDS: MEMANTINE 10 MG TAB PO SCH ×2 (08:21→16:24)
[2020-03-27] MEDS: HYDROCHLOROTHIAZIDE 25 MG TAB PO SCH (08:21)
[2020-03-27] MEDS ORDERED: RISPERIDONE 0.5 MG TAB PO PRN (13:00)
[2020-03-27] MEDS: SODIUM CHLORIDE 0.9% 1000ML 1,000 ML IV SCH (14:05)
[2020-03-27] MEDS: RIVAROXABAN 10 MG TABLET PO SCH (16:24)
[2020-03-27] MEDS: BENZTROPINE MESYLATE 1 MG TAB PO SCH (21:01)
[2020-03-27] MEDS: QUETIAPINE FUMARATE 25 MG TAB PO SCH (21:01)
[2020-03-27] MEDS: ATORVASTATIN 10 MG TAB PO SCH (21:01)
[2020-03-28] VITALS (8 sets, daily range): BP systolic 125–162; BP diastolic 63–95
[2020-03-28 05:53] LABS: BASOPHILS % 0.6 % (0.0-1.0); EOSINOPHILS # (AUTO) 0.1 (0.0-0.4); EOSINOPHILS % 2.2 % (0.0-6.0); HEMATOCRIT 27.1 % (38.2-49.6); HEMOGLOBIN 9.2 g/dL (14.0-18.0); LYMPHOCYTES # (AUTO) 1.1 (1.0-3.2); LYMPHOCYTES % 17.8 % (18.0-39.1); MEAN CORPUSCULAR HEMOGLOBIN 31.8 pg (28-32); MEAN CORPUSCULAR HGB CONC 33.9 g/dL (31-35); MEAN CORPUSCULAR VOLUME 93.8 fL (81-99); MONOCYTES # (AUTO) 0.7 (0.2-0.8); MONOCYTES % 11.4 % (4.4-11.3); NEUTROPHILS # (AUTO) 4.2 (2.1-6.9); PLATELET COUNT 155 x10e3/uL (140-360); RED BLOOD COUNT 2.89 x10e6/uL (4.3-5.7); RED CELL DISTRIBUTION WIDTH 14.4 % (11.7-14.4)
[2020-03-28 06:25] LABS: ALBUMIN/GLOBULIN RATIO 0.7 (0.8-2.0); ANION GAP 10.3 mmol/L (8-16); CALCIUM 8.2 mg/dL (8.4-10.2); CREATININE, SERUM 1.28 mg/dL (0.72-1.25); POTASSIUM 3.3 mmol/L (3.5-5.1)
[2020-03-28] MEDS: MEMANTINE 10 MG TAB PO SCH ×2 (09:04→16:58)
[2020-03-28] MEDS: DIVALPROEX SODIUM 250 MG TAB...DR PO SCH ×3 (09:04→21:10)
[2020-03-28] MEDS: HYDROCHLOROTHIAZIDE 25 MG TAB PO SCH (09:04)
[2020-03-28] MEDS: BALSAM PERU/CASTOR OIL 60 GM OINT...G. TP SCH (09:07)
[2020-03-28] MEDS ORDERED: POTASSIUM CHLORIDE 20 MEQ TAB CR PO ONE (10:00)
[2020-03-28] MEDS ORDERED: ONDANSETRON HCL 4 MG ORAL DISINTEGRATING TAB PO PRN (10:30)
[2020-03-28] MEDS: MORPHINE SULFATE 2 MG/ML SYR 1ML IV PRN ×2 (12:05→16:10)
[2020-03-28] MEDS: HYDROCODONE/APAP 5MG-325MG TAB PO PRN ×2 (14:44→19:45)
[2020-03-28] MEDS: POLYETHYLENE GLYCOL 3350 17 GM PACK PO SCH (16:58)
[2020-03-28] MEDS: RIVAROXABAN 10 MG TABLET PO SCH (16:58)
[2020-03-28] MEDS: ATORVASTATIN 10 MG TAB PO SCH (21:10)
[2020-03-28] MEDS: QUETIAPINE FUMARATE 25 MG TAB PO SCH (21:10)
[2020-03-28] MEDS: BENZTROPINE MESYLATE 1 MG TAB PO SCH (21:10)
[2020-03-29] VITALS: BP 120/70
[2020-03-29 05:32] LABS: BASOPHILS # (AUTO) 0.1 (0.0-0.1); BASOPHILS % 0.7 % (0.0-1.0); EOSINOPHILS # (AUTO) 0.2 (0.0-0.4); EOSINOPHILS % 2.7 % (0.0-6.0); HEMATOCRIT 29.8 % (38.2-49.6); HEMOGLOBIN 9.6 g/dL (14.0-18.0); LYMPHOCYTES # (AUTO) 1.3 (1.0-3.2); LYMPHOCYTES % 18.6 % (18.0-39.1); MEAN CORPUSCULAR HEMOGLOBIN 31.2 pg (28-32); MEAN CORPUSCULAR HGB CONC 32.2 g/dL (31-35); MEAN CORPUSCULAR VOLUME 96.8 fL (81-99); MONOCYTES # (AUTO) 0.8 (0.2-0.8); MONOCYTES % 11.6 % (4.4-11.3); NEUTROPHILS # (AUTO) 4.4 (2.1-6.9); NEUTROPHILS % 65.5 % (38.7-80.0); PLATELET COUNT 193 x10e3/uL (140-360); RED BLOOD COUNT 3.08 x10e6/uL (4.3-5.7); RED CELL DISTRIBUTION WIDTH 14.5 % (11.7-14.4)
[2020-03-29 05:56] LABS: ALBUMIN 2.1 g/dL (3.5-5.0); ALBUMIN/GLOBULIN RATIO 0.6 (0.8-2.0); ANION GAP 12.8 mmol/L (8-16); CALCIUM 8.3 mg/dL (8.4-10.2); CREATININE, SERUM 1.34 mg/dL (0.72-1.25); POTASSIUM 3.8 mmol/L (3.5-5.1)
[2020-03-29 07:58] VITALS: BP 178/100
[2020-03-29 08:12] VITALS: BP 178/100
[2020-03-29] MEDS: HYDROCHLOROTHIAZIDE 25 MG TAB PO SCH (08:53)
[2020-03-29] MEDS: HYDROCODONE/APAP 5MG-325MG TAB PO PRN (08:53)
[2020-03-29] MEDS: POLYETHYLENE GLYCOL 3350 17 GM PACK PO SCH (08:53)
[2020-03-29] MEDS: DIVALPROEX SODIUM 250 MG TAB...DR PO SCH (08:53)
[2020-03-29] MEDS: MEMANTINE 10 MG TAB PO SCH (08:53)
[2020-03-29] MEDS: BALSAM PERU/CASTOR OIL 60 GM OINT...G. TP SCH (08:57)
[2020-03-29] MEDS: MORPHINE SULFATE 2 MG/ML SYR 1ML IV PRN (10:02)
[2020-03-29] MEDS ORDERED: NORCO 7.5-3251 EACH PO (11:49)
[2020-03-29 12:05] VITALS: BP 129/81
[2020-03-29] MEDS ORDERED: XARELTO10 MG PO (12:05)
== END 2020-03-29 13:39 | DRG 480 ==
LOC: ER 19:43 → ERHOLD 23:10 → OBSVTOIN 23:10 → MED/SURG 23:11
PROVIDERS: ADMIT Internal Medicine; ATTEND Internal Medicine
PROC: 30233N1 Transfusion of Nonautologous Red Blood Cells into Peripheral Vein, Percutaneous Approach (ICD-10-PCS; 2020-03-24)
PROC: 0QS634Z Reposition Right Upper Femur with Internal Fixation Device, Percutaneous Approach (ICD-10-PCS; principal; 2020-03-25 12:30)
DX: S72.141A Displaced intertrochanteric fracture of right femur, initial encounter for closed fracture (principal); A41.9 Sepsis, unspecified organism; I13.0 Hypertensive heart and chronic kidney disease with heart failure and stage 1 through stage 4 chronic kidney disease, or unspecified chronic kidney disease; L03.115 Cellulitis of right lower limb; N17.9 Acute kidney failure, unspecified; F03.91 Unspecified dementia, unspecified severity, with behavioral disturbance; I50.20 Unspecified systolic (congestive) heart failure; L97.811 Non-pressure chronic ulcer of other part of right lower leg limited to breakdown of skin; E87.6 Hypokalemia; N18.30 Chronic kidney disease, stage 3 unspecified; I48.0 Paroxysmal atrial fibrillation; Z85.46 Personal history of malignant neoplasm of prostate; Z85.89 Personal history of malignant neoplasm of other organs and systems; Z82.49 Family history of ischemic heart disease and other diseases of the circulatory system; Z80.3 Family history of malignant neoplasm of breast; D64.9 Anemia, unspecified; W01.0XXA Fall on same level from slipping, tripping and stumbling without subsequent striking against object, initial encounter; Y93.89 Activity, other specified; Y92.012 Bathroom of single-family (private) house as the place of occurrence of the external cause; I35.0 Nonrheumatic aortic (valve) stenosis; D63.8 Anemia in other chronic diseases classified elsewhere; Z20.828 Contact with and (suspected) exposure to other viral communicable diseases
CPT/HCPCS: 36415; 72170; 76000; 80053; 80202; 81001; 82607; 82728; 82746; 82948; 83540; 83605; 83735; 84100; 84443; 84466; 85025; 85045; 85610; 85730; 86850; 86900; 86920; 87040; 87086; 93005; 97139; 99251; 99284; C1713; J0690; J0692; J1100; J1940; J2001; J2270; J2405; J3010; J3370; J3475; J3480; J7030; J7050; P9016; U0002

== ENCOUNTER 2021-01-07 13:07 | Emergency (ER) | payer MEDICARE, BC ==
[~2021-01-07] VITALS: Ht 188 cm; Wt 81.6 kg
[~2021-01-07 13:07] MED LIST changes: +ATORVASTATIN CA10 MG PO; +BENZTROPINE ME0.5 MG PO; +NORCO 7.5-3251 EACH PO; +PROPRANOLOL PO; +XARELTO10 MG PO
== END 2021-01-07 16:47 | disposition home or self-care (01) ==
LOC: ER 13:21
DX: S00.83XA Contusion of other part of head, initial encounter (principal); L03.115 Cellulitis of right lower limb; W05.0XXA Fall from non-moving wheelchair, initial encounter; Y93.01 Activity, walking, marching and hiking; Y92.008 Other place in unspecified non-institutional (private) residence as the place of occurrence of the external cause; F03.90 Unspecified dementia, unspecified severity, without behavioral disturbance, psychotic disturbance, mood disturbance, and anxiety; I25.10 Atherosclerotic heart disease of native coronary artery without angina pectoris; I48.91 Unspecified atrial fibrillation; G40.909 Epilepsy, unspecified, not intractable, without status epilepticus; Z86.73 Personal history of transient ischemic attack (TIA), and cerebral infarction without residual deficits
CPT/HCPCS: 70450; 72125; 72131; 72170; 99283